=== PATIENT | male | born 1960 | race Caucasian/White ===

== ENCOUNTER → 2016-04-26 10:34 | Emergency (ER) | payer MEDICARE | END | disposition left against medical advice (07) | LOC: ER1 10:34 | DX: Z53.21 Procedure and treatment not carried out due to patient leaving prior to being seen by health care provider (principal) ==

== ENCOUNTER → 2016-05-01 | Outpatient (CLI) | payer MEDICARE, SELFPAY | LOC: KOH-I 11:53 | DX: M54.2 Cervicalgia (principal); M54.9 Dorsalgia, unspecified; M25.562 Pain in left knee; M25.561 Pain in right knee | CPT/HCPCS: 72050; 72070; 72110; 73564 ==

== ENCOUNTER 2016-05-25 16:54 | Emergency (ER) | payer MEDICARE, SELFPAY | END 2016-05-25 20:55 | disposition home or self-care (01) | LOC: ER1 16:54 | DX: R07.0 Pain in throat (principal); R05 Cough; R09.89 Other specified symptoms and signs involving the circulatory and respiratory systems; I10 Essential (primary) hypertension; F17.210 Nicotine dependence, cigarettes, uncomplicated; Z79.899 Other long term (current) drug therapy | CPT/HCPCS: 96372; 99282; J1100 ==

== ENCOUNTER → 2016-07-01 | Outpatient (CLI) | payer MEDICARE, SELFPAY | LOC: EMI 10:00 | DX: M54.5 Low back pain (principal); M51.36 Other intervertebral disc degeneration, lumbar region; M48.06 Spinal stenosis, lumbar region | CPT/HCPCS: 72148 ==

== ENCOUNTER → 2016-08-03 | Outpatient (CLI) | payer MEDICARE, SELFPAY | LOC: RAD 10:03 | DX: M25.551 Pain in right hip (principal); M25.552 Pain in left hip; Z98.890 Other specified postprocedural states; M47.896 Other spondylosis, lumbar region; M25.519 Pain in unspecified shoulder; M54.9 Dorsalgia, unspecified | CPT/HCPCS: 72110; 73030; 73522 ==

== ENCOUNTER → 2016-08-23 | Outpatient (CLI) | payer MEDICARE, OTHER | LOC: EMI 08-12 10:15 | DX: M54.2 Cervicalgia (principal); M54.6 Pain in thoracic spine; M50.30 Other cervical disc degeneration, unspecified cervical region; M99.71 Connective tissue and disc stenosis of intervertebral foramina of cervical region; M50.222 Other cervical disc displacement at C5-C6 level; M51.24 Other intervertebral disc displacement, thoracic region; M25.78 Osteophyte, vertebrae | CPT/HCPCS: 72141; 72146 ==